=== PATIENT | female | born 1940 | race African-American/Black ===

== ENCOUNTER 2017-02-13 01:32 | Emergency (ER) | payer MEDICAID ==
[~2017-02-13] VITALS: Ht 157.5 cm; Wt 60.8 kg
[2017-02-13 01:32] VITALS: BP 145/75
[2017-02-13 02:19] LABS: APPEARANCE,URINE CLEAR; KETONES,URINE NEGATIVE (NEGATIVE); LEUKOCYTE ESTERASE ,URINE 2+ (NEGATIVE); NITRITE,URINE NEGATIVE (NEGATIVE); PH,URINE 8 (4.5-8.0); PROTEIN,URINE 3+ (NEGATIVE); UROBILINOGEN,URINE NORMAL MG/DL (0.0-1.0)
[2017-02-13 02:34] LABS: BACTERIA,URINE FEW /HPF; RBC,URINE 0-2 /HPF (0 - 2); SQUAMOUS EPITHELIAL CELL,UR MANY /LPF (NONE/OCC)
[2017-02-13 02:35] LABS: FINE GRANULAR CASTS,URINE 0-2 /LPF
--- NOTE | 2017-02-13 03:32 | Emergency Room Report ---
History of Present Illness General Chief Complaint: Generalized Weakness Source: Patient, Family Member, EMS Present Illness HPI This 76-year-old female with history hypertension. She presents with altered mental status. She call her family member pastor. She seemed to be confused. She said she been going to the bathroom a lot. Denies any fever chills denies any nausea vomiting. No focal deficit. Allergies: Uncoded Allergies: PENICILLIN (Allergy, Unknown, 02/13/17) Patient History Past Medical History: see triage record, old chart reviewed, HTN Past Surgical History: other Pertinent Family History: none Social History: Denies: smoking Now: No Immunizations: other Reviewed Nursing Documentation: PMH: Agreed, PSxH: Agreed Nursing Documentation-PMH Past Medical History: No History, Except For Hx Hypertension: Yes Review of Systems Eye: Denies: blurred vision, eye pain ENT: Denies: ear pain, nose congestion, throat swelling Respiratory: Denies: cough, shortness of breath Cardiovascular: Denies: chest pain, palpitations Gastrointestinal: Denies: abdominal pain, diarrhea, nausea, vomiting Genitourinary: Reports: frequency Musculoskeletal: Denies: back pain, joint pain Skin: Denies: rash Neurological: Denies: headache, numbness Endocrine: Denies: increased thirst, increased urine Hematologic/Lymphatic: Denies: easy bruising All Other Systems: negative except mentioned in HPI Physical Exam Vital Signs Date Time Temp Pulse Resp B/P Pulse Ox O2 Delivery O2 Flow Rate FiO2 02/13/17 01:22 98.8 145/75 02/13/17 01:32 81 20 98 Room Air vitals normal Sp02 EP Interpretation: reviewed, normal General Appearance: well appearing, no apparent distress, alert Head: normocephalic, atraumatic Eyes: bilateral eye EOMI, bilateral eye PERRL ENT: hearing grossly normal, normal pharynx Neck: full range of motion, supple, no meningismus Respiratory: chest non-tender, lungs clear, normal breath sounds Cardiovascular #1: regular rate, rhythm, no murmur Gastrointestinal: normal bowel sounds, non tender, no mass, no organomegaly, no bruit, non-distended Musculoskeletal: back normal, gait/station normal, normal range of motion Psychiatric: mood/affect normal Skin: warm/dry Medical Decision Making Diagnostic Impression: Primary Impression: Episode of generalized weakness Additional Impression: UTI (urinary tract infection) Qualified Codes: N30.00 - Acute cystitis without hematuria ER Course She presents with weakness and symptoms consistent with UTI. Even though her urinalysis here is unremarkable and equivocal, but she's been walking to the bathroom to urinate several times already here. Ago and cover with antibiotics. No evidence of sepsis. No evidence of a CVA or TIA. she also has a history of insomnia and taking Restoril. She need a refill on it. We'll discharge home with her daughter. Lab Results Impression labs unremarkable Last Vital Signs Date Time Temp Pulse Resp B/P Pulse Ox O2 Delivery O2 Flow Rate FiO2 02/13/17 01:32 98.8 81 20 145/75 98 Room Air Status: improved Disposition: HOME, SELF-CARE Condition: Stable Scripts Temazepam (RESTORIL*) 30 Mg Capsule 30 MG ORAL BEDTIME, #30 CAP 0 Refills Prov: MIHAELA MARVIN M.D. 02/13/17 Cephalexin* (KEFLEX*) 500 Mg Capsule 500 MG ORAL TID, #21 CAP 0 Refills Prov: MIHAELA MARVIN M.D. 02/13/17 Referrals: NOT CHOSEN JOEY/,REFERRING (PCP) Additional Instructions: Followup with your Dr. in 3-5 days. Return if worse. MIHAELA MARVIN M.D. Feb 13, 2017 03:32
[2017-02-13] MEDS ORDERED: cefTRIAXone 1 GM in NS 55 ML IVPB ONE (03:45)
[2017-02-13 03:46] LABS: BASOPHILS % (AUTO) 1.6 % (0.0-2.0); EOSINOPHILS % (AUTO) 0.5 % (0.0-3.0); LYMPHOCYTES % (AUTO) 14.2 % (20.0-45.0); MEAN CORPUSCULAR HEMOGLOBIN 29.8 PG (27.0-31.0); MEAN CORPUSCULAR HGB CONC 32.5 G/DL (32.0-36.0); MEAN CORPUSCULAR VOLUME 92 FL (80-99); MEAN PLATELET VOLUME 9.3 FL (6.5-10.1); NEUTROPHILS % (AUTO) 76.7 % (45.0-75.0); PLATELET COUNT 123 K/UL (150-450); RED BLOOD COUNT 3.93 M/UL (4.20-5.40); RED CELL DISTRIBUTION WIDTH 13.4 % (11.6-14.8)
[2017-02-13 03:59] VITALS: BP 131/89
[2017-02-13 03:59] LABS: TROPONIN I < 0.30 ng/mL (<=0.30)
[2017-02-13 04:00] VITALS: BP 131/89
[2017-02-13 04:02] LABS: ANION GAP 15 (5-15); CALCIUM 8.9 mg/dL (8.6-10.2); CARBON DIOXIDE 25 mEQ/L (20-30); CHLORIDE 106 mEQ/L (98-107); CREATININE 1.3 mg/dL (0.5-0.9); HEMOLYSIS 5; POTASSIUM 3.9 mEQ/L (3.4-4.9); SODIUM 146 mEQ/L (135-145)
[2017-02-13] MEDS ORDERED: LORazepam Inj 2mg/ml 1ml IV ONE (04:15)
[2017-02-13] MEDS ORDERED: KEFLEX500 MG ORAL (04:17)
[2017-02-13] MEDS ORDERED: RESTORIL30 MG ORAL (04:17)
== END 2017-02-13 04:00 | disposition home or self-care (01) ==
LOC: EDBD 01:32 → EMR 01:52
DX: N39.0 Urinary tract infection, site not specified (principal); I10 Essential (primary) hypertension; Z88.2 Allergy status to sulfonamides
CPT/HCPCS: 36415; 80048; 81001; 84484; 85025; 96360; 96361; 96374; 99284; J0696